=== PATIENT | male | born 1950 | race African-American/Black ===

== ENCOUNTER 2016-08-13 09:41 | Emergency (ER) | payer MEDICARE, OTHER ==
--- NOTE | ~2016-08-13 | CR63 ---
[facility] A Service of [facility] & [facility] [place] [place] RADIOLOGY TEXT RESULTS PATIENT: MARY TITUS LOCATION: CFTX : 52 UNIT #: [id number] AGE: [address]: Franca Oconnell SEX: M ORDER DR: [id number] [facility] [address] [place], [place] [address] [id number] E MR#: [id number] Acc #: [id number] NAME: MARY TITUS. : 1950 SEX: M STUDY DATE/TIME: 08/13/2016 9:38 UNIT: [facility] ROOM: STUDY DESCRIPTION: CR Chest 2 View Attending Physician: Franca Oconnell Pa-C Ordering Physician: Franca Oconnell Pa-C Primary Care Physician: [facility] MEDICAL IMAGING REPORT This report is preliminary unless electronic signature is present EXAM Chest x-ray 08/13 INDICATIONS Shortness of air and cough for 1 day. History of prostate cancer. FINDINGS 2 views of the chest were obtained. No comparison. Cardiac and mediastinal contours are normal. There is emphysema. The lungs are clear. There is no pneumothorax. IMPRESSION Emphysema. No active disease. Dictated by... Quan Cohen Jr., M.D. THIS IS AN ELECTRONICALLY VERIFIED REPORT Quan Cohen Jr., M.D. at 08/13/2016 5:04 PM JOSE G/bello TD: 08/13/2016 11:28 JOB #: [id number] MEDICAL IMAGING REPORT Page 1 of 1 COPY
[~2016-08-13 09:41] MED LIST: ALBUTEROL20 ml INH
== END 2016-08-13 11:00 | disposition home or self-care (01) ==
LOC: CFTX 09:41
DX: J45.901 Unspecified asthma with (acute) exacerbation (principal); I10 Essential (primary) hypertension; Z85.46 Personal history of malignant neoplasm of prostate
CPT/HCPCS: 71020; 94640; 99283